=== PATIENT | male | born 1950 | race Caucasian/White ===

== ENCOUNTER → 2018-01-25 | Day surgery (SDC) | payer MEDICARE, BC ==
[2018-01-22 11:34] LABS: BASOPHILS # (AUTO) 0.1 (0.0-0.1); BASOPHILS % 1.1 % (0.0-1.0); EOSINOPHILS # (AUTO) 0.3 (0.0-0.4); EOSINOPHILS % 4.1 % (0.0-6.0); HEMATOCRIT 39.5 % (38.2-49.6); HEMOGLOBIN 13.8 g/dL (14.0-18.0); LYMPHOCYTES % 27.8 % (18.0-39.1); MEAN CORPUSCULAR HEMOGLOBIN 31.4 pg (28-32); MEAN CORPUSCULAR HGB CONC 34.9 g/dL (31-35); MONOCYTES # (AUTO) 0.7 (0.2-0.8); MONOCYTES % 9.5 % (4.4-11.3); NEUTROPHILS # (AUTO) 4.1 (2.1-6.9); NEUTROPHILS % 57.1 % (38.7-80.0); PLATELET COUNT 205 x10e3/uL (140-360); RED BLOOD COUNT 4.39 x10e6/uL (4.3-5.7); RED CELL DISTRIBUTION WIDTH 12.8 % (11.7-14.4)
[2018-01-22 12:00] LABS: ANION GAP 13.1 mmol/L (8-16); BLOOD UREA NITROGEN 13 mg/dL (7-26); BUN/CREATININE RATIO 14 (6-25); CALCIUM 10.3 mg/dL (8.4-10.2); CARBON DIOXIDE 29 mmol/L (22-29); CHLORIDE 102 mmol/L (98-107); CREATININE, SERUM 0.93 mg/dL (0.72-1.25); EST GLOMERULAR FILTRATION RATE > 60 ML/MIN (60-); GLUCOSE 98 mg/dL (74-118); POTASSIUM 5.1 mmol/L (3.5-5.1); SODIUM 139 mmol/L (136-145)
--- NOTE | 2018-01-22 12:04 | Diagnostic Imaging Report ---
EXAM: XR CHEST 2 VIEWS DATE: 01/22/2018 11:18 AM INDICATION: Preoperative, basal cell carcinoma COMPARISON: None FINDINGS: Lines and Tubes: None Heart and Mediastinum: No acute cardiomediastinal findings. Sternotomy wires present. Postsurgical aortic valve. Lungs and Pleura: No significant pleural effusion, pneumothorax, or focal consolidation. Nodular density right lung base. Bones and Soft Tissues: No acute findings. IMPRESSION: 1. Nodular density right lung base. Chest x-ray follow-up or CT recommended. Signed by: Dr. Willis Ratliff MD on 01/22/2018 12:00 PM
[~2018-01-25] MED LIST: ACETAMINOPHEN 1000 MG/100 ML IV ONE; ALLOPURINOL100 MG PO; AMLODIPINE BESY10 MG PO; ASPIR 8181 MG PO; BENTYL10 MG/1 ML PO; BUPIVACAINE 0.5%/EPI 30 ML SDV INJ ONE; BUPIVACAINE HCL 0.5% INJ 30 ML VIAL INJ ONE; CEFAZOLIN SOD 1 GM/D5W 50ML 50 ML IV ONE; CO Q-10100 MG PO; CRESTOR10 MG PO; DEXAMETHASONE SOD PHOS INJ 4 MG/ML VIAL ONE; EPHEDRINE SULFATE INJ 50 MG/10 ML SYR ONE; ESMOLOL HCL 100MG/10ML 10 MG/ML VIAL ONE; EYE LUBRICANT OPTH OINT 3.5GM TUBE OP ONE; FENTANYL CITRATE/PF 100MCG/2 ML INJ ONE; FLOMAX0.4 MG PO; GLYCOPYRROLATE INJ 1MG/ 5 ML SYR ONE; HYDROMORPHONE 2MG/ML 2 MG/ML ML ONE; LEVOTHYROXINE50 MCG PO; LIDOCAINE 1% W/EPINEPHRINE 20 ML VIAL ONE; LIDOCAINE HCL 2% LOCAL INJ 5 ML SDV VIAL INJ ONE; LOSARTAN-HCTZ1 EAC1 PO; MIDAZOLAM HCL 2 MG/2 ML VIAL ONE; MORPHINE SULFATE 2 MG/ML SYR ONE; MUPIROCIN 2% OINT 22 GM TUBE ONE; OMEGA 3 1,0001 EACH PO; ONDANSETRON HCL INJ 2 MG/ML VIAL ONE; PLAVIX75 MG PO; PROPOFOL IV EMULSION 10 MG/ML 20 ML VIAL ONE; SERTRALINE HCL50 MG PO; SEVOFLURANE INHAL SOLN 250 ML PEN BTL ONE
--- OUTSIDE RECORDS SUMMARY | 2018-01-25 07:33 | XMS REPORT ---
Author Author [facility] Address Unknown Phone Unavailable Care Team Providers Care Clinical Studies Specialist Name Role Phone CAREN HASKINS Unavailable Unavailable Problems This patient has no known problems. Allergies, Adverse Reactions, Alerts This patient has no known allergies or adverse reactions. Medications This patient has no known medications. Results Test Description Test Time Test Comments Text Results Atomic Results Result Comments CHEST 2 VIEWS 2018-01-22 11:59:00 [place] [id number] Patient Name: SONI HWANG MR #: [id number] : 1950 Age/Sex: 67/M Req #: [id number] Adm Physician: Ordered by: CAREN HASKINS MD Report #: [id number] Location: OR Room/Bed: Procedure: [id number] DX/CHEST 2 VIEWS Exam Date: 01/22/18 Exam Time: 1142 REPORT STATUS: Signed EXAM: XR CHEST 2 VIEWS DATE: 01/22/2018 11:18 AM IN DICATION: Preoperative, basal cell carcinoma COMPARISON: None FINDINGS: Lines and Tubes: None Heart and Mediastinum: No acute cardiomediastinal findings. Sternotomy wires present. Postsurgical aortic valve. Lungs and Pleura: No significant pleural effusion, pneumothorax, or focal consolidation. Nodular density right lung base. Bones and Soft Tissues: No acute findings. IMPRESSION: 1. Nodular density right lung base. Chest x-ray follow-up or CT recommended. Signed by: Dr. Willis Richardson MD on 01/22/2018 12:00 PM Dictated By: WILLIS RICHARDSON MD 1200 Transcribed By: JANICE on 01/22/18 1200 COPY TO: CAREN HASKINS MD
[2018-01-25 12:29] VITALS: BP 142/72
--- NOTE | 2018-01-25 15:29 | Operative Report ---
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 PROCEDURES 1. Excisional preparation of recipient site. 2. Full thickness skin grafting of right temporal parietal area. 3. Full thickness skin grafting right upper eyelid. ANESTHESIA: General. HISTORY: The patient is a 67-year-old male who has biopsy proven extramammary Paget's involving the right temporal parietal area. He underwent Mohs micrographic surgery yesterday which culminated in a defect measuring approximately 50 cm squared. It encompasses the right temporal parietal area, the right lateral eyebrow and the lateral aspect of the right upper eyelid. The risks, benefits and alternatives to treatment were discussed with the patient and the family, and a full thickness skin graft is the proposed method of closure with the donor site being the right upper chest. DETAILS OF PROCEDURE: Patient was marked preoperatively in the holding area. He was brought to the operating theater, and after the induction of adequate general anesthesia he was prepped and draped in a supine position and a time out was performed. The procedure was begun by excising the edges of the wound from the Mohs defect. The edges were then made hemostatic using the electrocautery. The defect had a template made, and this template was then transferred onto the right anterior chest. The soft tissue of the right anterior chest was infiltrated with 1% Xylocaine with epinephrine. Approximately 25 mL was used. After waiting an appropriate amount of time for maximum vasoconstrictive effect, the full thickness soft tissue was incised through the skin and subcutaneous tissue. Bleeding was controlled using the electrocautery. The skin was then removed and the wound bed made hemostatic using electrocautery. The graft was placed in a saline-soaked gauze on the back table. At this point, the soft tissue of the chest was undermined widely, and after irrigating and making hemostasis absolute, the wound was closed with 4-0 Vicryl in an interrupted buried fashion to approximate the deep dermis and a 4-0 Monocryl running subcuticular stitch. Steri-Strips were applied, and a sterile dressing was applied. The full thickness skin graft was then de-fatted down to the level of the deep dermis. It was placed onto the wound bed and secured in place using 5-0 chromic sutures in an interrupted fashion. The graft was tailored to the exact dimensions of the Mohs defect. At this point, several incisions in the graft were made to allow egress of fluid, and 4-0 silk sutures were placed circumferentially around the perimeter of the graft. Bactroban ointment was applied directly to the graft. Xeroform gauze was placed over the Bactroban ointment, and moistened cotton balls were then placed onto the Xeroform. The silk sutures were tied in a bolster type fashion, keeping good approximation of the graft to the wound bed. At the completion of the procedure, the blood loss was estimated to be 10 to 15 mL. He was returned to the recovery room in satisfactory condition and discharged with a postoperative instruction sheet as well as a followup appointment. Job#: [id number] EV
== END | disposition home or self-care (01) ==
LOC: OR 07:31
PROVIDERS: ATTEND Plastic Surgery
DX: Z48.3 Aftercare following surgery for neoplasm (principal); Z85.828 Personal history of other malignant neoplasm of skin; I10 Essential (primary) hypertension; I25.810 Atherosclerosis of coronary artery bypass graft(s) without angina pectoris; M10.9 Gout, unspecified; E03.9 Hypothyroidism, unspecified; F41.9 Anxiety disorder, unspecified; F32.9 Major depressive disorder, single episode, unspecified; Z01.812 Encounter for preprocedural laboratory examination; Z01.818 Encounter for other preprocedural examination; Z79.82 Long term (current) use of aspirin; Z79.02 Long term (current) use of antithrombotics/antiplatelets; Z95.1 Presence of aortocoronary bypass graft; Z95.2 Presence of prosthetic heart valve; Z86.73 Personal history of transient ischemic attack (TIA), and cerebral infarction without residual deficits
CPT/HCPCS: 15240; 15241 ×2; 36415; 71046; 80048; 85025; J0131; J0690; J1100; J1170; J2001; J2250; J2270; J2405; J2704; J3490

== ENCOUNTER 2018-01-29 20:01 | Emergency (ER) | payer MEDICARE, BC ==
[~2018-01-29] VITALS: Ht 175.3 cm; Wt 74.8 kg
[~2018-01-29 20:01] MED LIST changes: -ACETAMINOPHEN 1000 MG/100 ML IV ONE; -BENTYL10 MG/1 ML PO; -BUPIVACAINE 0.5%/EPI 30 ML SDV INJ ONE; -BUPIVACAINE HCL 0.5% INJ 30 ML VIAL INJ ONE; -CEFAZOLIN SOD 1 GM/D5W 50ML 50 ML IV ONE; -DEXAMETHASONE SOD PHOS INJ 4 MG/ML VIAL ONE; -EPHEDRINE SULFATE INJ 50 MG/10 ML SYR ONE; -ESMOLOL HCL 100MG/10ML 10 MG/ML VIAL ONE; -EYE LUBRICANT OPTH OINT 3.5GM TUBE OP ONE; -FENTANYL CITRATE/PF 100MCG/2 ML INJ ONE; -GLYCOPYRROLATE INJ 1MG/ 5 ML SYR ONE; -HYDROMORPHONE 2MG/ML 2 MG/ML ML ONE; -LIDOCAINE 1% W/EPINEPHRINE 20 ML VIAL ONE; -LIDOCAINE HCL 2% LOCAL INJ 5 ML SDV VIAL INJ ONE; -MIDAZOLAM HCL 2 MG/2 ML VIAL ONE; -MORPHINE SULFATE 2 MG/ML SYR ONE; -MUPIROCIN 2% OINT 22 GM TUBE ONE; -ONDANSETRON HCL INJ 2 MG/ML VIAL ONE; -PROPOFOL IV EMULSION 10 MG/ML 20 ML VIAL ONE; -SEVOFLURANE INHAL SOLN 250 ML PEN BTL ONE
[2018-01-29] MEDS ORDERED: SODIUM CHLORIDE 0.9% 1000 ML BAG IV ONE (20:45)
[2018-01-29] MEDS ORDERED: ONDANSETRON HCL INJ 2 MG/ML VIAL IV ONE (22:00)
--- NOTE | 2018-01-29 22:15 | Diagnostic Imaging Report ---
ABDOMEN COMPLETE - HOPD Clinical history: Procedure done with abdominal pain Technique: AP view abdomen, supine and upright Comparison: None Findings: Abdomen: Slight gaseous prominence of small bowel loops with scattered air-fluid levels on upright view. No evidence of free air. Vascular calcifications. Sternotomy wires, coronary artery stent, and valve prosthesis noted over the lower thorax. Impression: Nonobstructive bowel gas pattern. Findings which can be seen with enteritis in the proper clinical setting. Signed by: Dr Nadine Lau MD on 01/29/2018 10:12 PM
--- NOTE | 2018-01-29 23:34 | Diagnostic Imaging Report ---
EXAM: CT ABD/PEL WO CONTRAST-HOPD DATE: 01/29/2018 12:00 AM INDICATION: Abdominal pain, reported laxative use COMPARISON: None TECHNIQUE: The abdomen and pelvis were scanned using a multidetector helical scanner. Coronal and sagittal reformations were obtained. CT low dose techniques were utilized, as applicable. IV Contrast: 0 ml Isovue 300/370 FINDINGS: Lack of IV contrast decreases sensitivity in evaluating abdominal and pelvic organs. LOWER THORAX: No consolidations. Partially imaged coronary artery calcifications, sternotomy wires and aortic valve prosthesis. LIVER/BILIARY: No masses. No ductal dilatation. GALLBLADDER: Unremarkable SPLEEN: Unremarkable PANCREAS: Unremarkable ADRENALS: 1.3 cm left adrenal nodule with imaging findings compatible with lipid rich adenoma (HE00). KIDNEYS: 3 to 4 mm right upper pole renal calculus. No hydronephrosis. No hydronephrosis. GI TRACT: No evidence of bowel obstruction. No significant stool burden. Possible wall thickening of the descending colon though difficult to assess given noncontrast evaluation and underdistention. No evidence of appendicitis. VESSELS: Mild atherosclerotic calcifications. PERITONEUM/RETROPERITONEUM: No free air or fluid LYMPH NODES: No lymphadenopathy REPRODUCTIVE ORGANS/BLADDER: Mild prostatomegaly with circumferential which can be seen with chronic L1 obstruction.. SOFT TISSUES: Small fat-containing umbilical hernia BONES: Scattered degenerative changes of the spine IMPRESSION: Possible left sided colitis, which may be related to recent laxative use. Signed by: Dr Nadine Lau MD on 01/29/2018 11:31 PM
[2018-01-30] MEDS ORDERED: SODIUM CHLORIDE 0.9% 1000 ML BAG IV ONE
[2018-01-30] MEDS ORDERED: BENTYL10 MG/1 ML PO (02:15)
== END 2018-01-30 02:29 | disposition home or self-care (01) ==
LOC: ER 20:01 → FSED 01-30 02:29
DX: R10.84 Generalized abdominal pain (principal); I10 Essential (primary) hypertension; E78.5 Hyperlipidemia, unspecified; I25.10 Atherosclerotic heart disease of native coronary artery without angina pectoris; M10.9 Gout, unspecified; Z95.2 Presence of prosthetic heart valve; Z79.02 Long term (current) use of antithrombotics/antiplatelets; Z79.82 Long term (current) use of aspirin
CPT/HCPCS: 74022; 74176; 80048; 81003; 83880; 85025; 99284; J2405; J7030

== ENCOUNTER → 2021-01-18 | Outpatient (CLI) | payer MEDICARE, BC ==
[~2021-01-18] MED LIST changes: +BENTYL10 MG/1 ML PO
== END ==
LOC: RAD 09:45
PROVIDERS: ATTEND Family Medicine
DX: R07.89 Other chest pain (principal)
CPT/HCPCS: 71046

== ENCOUNTER → 2023-10-25 | Outpatient (REF) | payer MEDICARE, BC | LOC: CT 08:30 | PROVIDERS: ATTEND Family Medicine | DX: M47.816 Spondylosis without myelopathy or radiculopathy, lumbar region (principal) | CPT/HCPCS: 72131 ==